=== PATIENT | female | born 1980 | race Two or more races ===

== ENCOUNTER → 2020-07-29 16:33 | Outpatient (CLI) | payer OTHER, SELFPAY ==
[2020-07-29 17:26] LABS: Basophils # 0.1 K/mm3 (0-0.2); Basophils % 0.9 % (0.1-2.0); Eosinophils # 0.2 K/mm3 (0.0-0.4); Eosinophils % 2.8 % (0.1-12.0); Hematocrit 40.6 % (37.0-47.0); Hemoglobin 13.3 g/dL (12.2-16.2); Lymphocytes # 2.3 K/mm3 (0.7-4.5); Lymphocytes % 27.7 % (10-50); Mean Corpuscular HGB Conc 32.8 g/dL (31.8-35.4); Mean Corpuscular Hemoglobin 29.4 pg (27.0-31.2); Mean Corpuscular Volume 89.5 fl (81-99); Mean Platelet Volume 9.6 fl (7.4-10.4); Monocytes # 0.5 K/mm3 (0.1-1.0); Monocytes % 6.2 % (1.7-9.3); Neutrophils # 5.1 K/mm3 (1.8-7.8); Neutrophils % 62.4 % (37.0-80.0); Platelet Count 267 K/mm3 (142-424); Red Blood Count 4.54 M/mm3 (4.20-5.40); Red Cell Distribution Width 13.3 % (11.5-17.5); White Blood Count 8.2 K/mm3 (4.8-10.8)
[2020-07-29 17:46] LABS: Alanine Aminotransferase 28 U/L (12-78); Albumin Level 4.7 g/dl (3.5-5.0); Albumin/Globulin Ratio 1.5 (1.1-1.8); Alkaline Phosphatase 62 U/L (38-126); Anion Gap 16.5 mEq/L (5-15); Aspartate Amino Transferase 26 U/L (14-36); Bilirubin,Total 0.6 mg/dl (0.2-1.3); Blood Urea Nitrogen 13 mg/dl (7-17); Calcium 9.8 mg/dl (8.4-10.2); Carbon Dioxide 23 mmol/L (22.0-30.0); Chloride 103 mmol/L (98-107); Chol/HDL Ratio 7.6 (1-3.5); Cholesterol 236 mg/dl (140-200); Estimated Glomerular Filt Rate 93 ml/min (>60); GFR (African American) 112 ML/MIN (>60); Globulin 3.1 g/dL (1.3-3.2); Glucose 93 mg/dl (74-100); HDL Cholesterol 31 mg/dl (40-60); Potassium 4.5 mmoL/L (3.5-5.1); Sodium 138 mmol/L (136-145); Total Protein,Serum 7.8 g/dl (6.3-8.2); Triglycerides 204 mg/dl (30-150); VLDL Cholesterol 41 mg/dL (0-40)
[2020-07-29 17:58] LABS: Direct LDL Cholesterol 147.66 mg/dL (100-129)
[2020-07-29 18:04] LABS: Free T4 (Free Thyroxine) 1.52 ng/dl (0.78-2.19)
[2020-07-29 18:08] LABS: 25-OH Vitamin D, Total < 12.8 ng/mL (30-100)
[2020-07-29 18:18] LABS: Thyroid Stimulating Hormone 0.78 uIU/mL (0.465-4.68)
[2020-07-29 18:24] LABS: Hemoglobin A1C 6.1 % (4.0-6.0)
== END ==
PROVIDERS: Visit Provider Physician Assistant
DX: Z00.00 Encounter for general adult medical examination without abnormal findings (principal); Z86.32 Personal history of gestational diabetes; E55.9 Vitamin D deficiency, unspecified; Z79.899 Other long term (current) drug therapy
CPT/HCPCS: 80053; 80061; 82306; 83036; 84439; 84443; 85025

== ENCOUNTER → 2020-08-10 10:17 | Outpatient (CLI) | payer OTHER, SELFPAY ==
--- NOTE | 2020-08-10 10:18 | MM_ITS ---
PROCEDURE: MM DIG SCREENING MAMM BI W/CAD Digital Breast Tomosynthesis Included CLINICAL INDICATION: Routine breast cancer screening There is no personal or family history of breast cancer. COMPARISON: This is a baseline screening exam, patient complaints TECHNIQUE: Standard CC and MLO images and 3D Tomosynthesis was obtained. R2 CAD reviewed. FINDINGS: Moderate scattered and diffuse fibroglandular densities are seen throughout both breasts. The findings are bilateral and symmetrical. There are no CAD markings. There is no suspicious lesion and no suspicious microcalcifications. IMPRESSION: Fatty parenchyma with no suspicious lesions seen BI-RAD Category: 1 Negative FOLLOW-UP: 1YR 1 Year Follow-up (A letter has been sent to the patient regarding results of the study.) Dictated by: Dr. Micah Christian MD 08/14/2020 08:53 Dr. Micah Christian MD in [place] 08/14/2020 08:53
== END ==
PROVIDERS: PCP Physician Assistant; Visit Provider Physician Assistant
DX: Z12.31 Encounter for screening mammogram for malignant neoplasm of breast (principal)
CPT/HCPCS: 77063; 77067

== ENCOUNTER 2020-11-11 11:03 | Emergency (ER) | payer OTHER, SELFPAY ==
[2020-11-11 11:44] VITALS: BP 128/86; PULSE 70; RESP 16; TEMP 37.1; O2SAT 99; BMI 31.4
--- NOTE | 2020-11-11 11:48 | HMH.EDUTC ---
[facility] [place] Imp[place]: Left otitis externa Qualifiers: Otitis externa type: unspecified type Chronicity: acute Qualified Code(s): H60.502 - Unspecified acute noninfective otitis externa, left ear Disposition: Home, Self-Care Condition on Discharge: Good Instructions: How to Instill Ear Drops, DI for Otitis Externa Additional Instructions: Use the ear drops as directed. Follow up with your regular doctor. Take the ibuprofen that was prescribed for pain. GO TO THE ER FOR ANY WORSENING SYMPTOMS OR CONCERNS Prescriptions: Ibuprofen [Ibuprofen 600mg Tablet] 600 mg PO Q6HP PRN #30 tab PRN Reason: Mild Pain Transmission Status: Received by [id number] Ciprofloxacin HCl/Dexameth [Cipro 0.3%-Dex 0.1% Otic Susp 7.5mL] 2 drops EAR-LEFT BID 7 Days #1 bottle Transmission Status: Received by [id number] Referrals: Chi Lawson MD [Primary Care Provider] - Time of Disposition: 11:55 Medical Decision Making - Medical Records Medical records reviewed: No: I reviewed the patient's medical records. - Fabricio Inquiry Pt receiving controlled substance: No Vital Signs: 11/11/20 11:44 11/11/20 12:05 Temperature 98.8 F 98.8 F Temperature Source Temporal Artery Scan Oral Pulse Rate 70 Pulse Rate [Right Radial] 70 Respiratory Rate 16 16 Blood Pressure 128/86 Blood Pressure [Right Arm] 128/86 Blood Pressure Mean [Right Arm] 100 Blood Pressure Source Automatic Cuff Blood Pressure Source [Right Arm] Automatic Cuff Blood Pressure Position Sitting Blood Pressure Position [Right Arm] Sitting 02 Sat by Pulse Oximetry 99 Oxygen Delivery Method Room Air Room Air [facility] [place] - General Stated complaint: possible ear infection left ear Time Seen by Provider: 11/11/20 11:30 - History of Present Illness Provider Complaint: She complains of left ear pain for the past 2 days. She recently had similar symptoms of her right ear. She states that she took amoxicillin for it and it got better. But now her other ear has started to hurt. - Related Data Previous Rx's Medication Instructions Recorded levothyroxine 200 mcg tablet 200 mcg PO DAILY #90 tab 07/29/20 metformin 850 mg tablet 850 mg PO DAILY #90 tab 03/24/21 cholecalciferol (vitamin D3) 25 25 mcg PO DAILY #30 cap 07/31/20 mcg (1,000 unit) capsule ergocalciferol (vitamin D2) 1,250 1,250 mcg PO WEEKLY #5 cap 07/31/20 mcg (50,000 unit) capsule levonorgestrel-ethinyl estradiol 1 tab PO DAILY #28 tab 09/29/20 0.1 mg-20 mcg tablet amoxicillin 875 mg-potassium 1 tab PO BID 10 Days #20 tab 11/04/20 clavulanate 125 mg tablet carbamide peroxide 6.5 % ear drops 5 drp OTIC DAILY 4 Days #15 ml 11/04/20 prednisone 20 mg tablet 20 mg PO BID 5 Days #10 tab 11/04/20 Ciprofloxacin HCl/Dexameth [Cipro 2 drops EAR-LEFT BID 7 Days #1 11/11/20 0.3%-Dex 0.1% Otic Susp 7.5mL] bottle Ibuprofen [Ibuprofen 600mg 600 mg PO Q6HP PRN #30 tab 11/11/20 Tablet] levothyroxine 150 mcg tablet See Rx Instructions .ROUTE 11/12/20 .COMPLEX #78 tab Allergies Allergy/AdvReac Type Severity Reaction Status Date / Time No Known Allergies Allergy Verified 11/04/20 15:13 [facility] History - Hepatitis A Screen Attestation statement:: This patient has been screened for Hepatitis A risk factors. I have reviewed the patient's past medical history: Yes Other Medical History: Reports: Hypothyroidism, Thyroid Disease Other Surgeries: Yes: , Tubal Ligation - Social History Smoking Status: Current some day smoker Alcohol Intake: current Alcohol Intake Frequency:: holidays/special occasions only Substance Use Type: denies use Occupational Status: employed Family Hx:: Cancer, Diabetes, Other ROS Obtained: Yes All systems reviewed & no additional complaints - Constitutional Constitutional: Denies chills, Denies fever(s), Reports poor appetite, Reports malaise - Eyes Eyes: Denies eye discharge - ENT Ears, Nose, Analilia
[2020-11-11 12:05] VITALS: BP 128/86; PULSE 70; RESP 16; TEMP 37.1; O2SAT 99
== END 2020-11-11 12:06 | disposition home or self-care (01) ==
PROVIDERS: Emergency Provider Nurse Practitioner Family; PCP Emergency Medicine
DX: H60.502 Unspecified acute noninfective otitis externa, left ear (principal); E11.9 Type 2 diabetes mellitus without complications; E03.9 Hypothyroidism, unspecified; F17.210 Nicotine dependence, cigarettes, uncomplicated; Z79.899 Other long term (current) drug therapy